=== PATIENT | female | born 1980 | race Two or more races ===

== ENCOUNTER 2021-05-19 12:43 | Emergency (ER) | payer SELFPAY ==
[~2021-05-19] VITALS: Ht 152.4 cm; Wt 68.2 kg
--- NOTE | 2021-05-19 16:04 | ED.ADGEN ---
Past Medical History Past Medical History: No Pertinent History Past Surgical History: Other Additional Past Surgical Histo: D&C 07/14/2019 Smoking Status: Never Smoker Alcohol Use: None Drug Use: None General Adult EDM: Chief Complaint: VAGINAL BLEEDING HPI: HPI: Patient is a 40 year old female who presents to the emergency department with complaints of frequent irregular menstrual cycles for the last 3 months. Patient states that she will have a menstrual cycle that lasts about 8 days then stop for 1 week and starts again. She reports that last night her bleeding was very heavy with clots so she thought she should come to the ER to be checked out. She denies any headache, dizziness, dysuria, hematuria, body aches, fever, fatigue, chest pain, palpitations, nausea, vomiting, or diarrhea. Patient denies any concerns of sexually transmitted infections. She complains of pelvic pain that she currently rates a 6 out of 10 on the pain scale. She denies any alleviating or exacerbating factors. Patient states she has only used 4 pads today. She denies any abnormal vaginal discharge prior to the onset of the bleeding. Review of Systems: Review of Systems: Complete ROS is negative unless otherwise noted in the HPI. Allergies: Allergies: Allergies Coded Allergies Type Severity Reaction Last Updated Verified No Known Drug Allergies 05/19/21 No Physical Exam: PE: See above Constitutional: Well developed, well nourished, no acute distress, non-toxic appearance. HENT: Normocephalic, atraumatic, bilateral external ears normal, nose normal. Eyes: PERRLA, EOMI, conjunctiva normal, no discharge. Neck: Normal range of motion, no stridor. 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 Back: No tenderness Extremities: No cyanosis, ROM intact, no edema. Neurologic: Alert and oriented X 3, no focal deficits noted. Psychologic: Affect normal, judgement normal, mood normal. Current Patient Data: Labs: Laboratory Tests Test 05/19/21 15:45 05/19/21 16:10 05/19/21 16:38 Urine Collection Type Unknown Urine Color Yellow Urine Clarity Clear Urine pH 5.5 (<5.0-8.0) Urine Specific [place] 1.020 (1.000-1.030) Urine Protein Negative mg/dL (NEG-TRACE) Urine Glucose (UA) Negative mg/dL (NEG) Urine Ketones (Stick) Negative mg/dL (NEG) Urine Blood Large (NEG) Urine Nitrite Negative (NEG) Urine Bilirubin Negative (NEG) Urine Urobilinogen Dipstick 0.2 mg/dL (0.2 mg/dL) Urine Leukocyte Esterase Negative (NEG) Urine RBC >40 /HPF (0-2) Urine WBC 1-4 /HPF (0-4) Urine Squamous Epithelial Cells Few /LPF Urine Bacteria 0 /HPF (0-FEW) POC Urine HCG, Qualitative Hcg negative (Negative) White Blood Count 9.2 x10^3/uL (4.0-11.0) Red Blood Count 5.00 x10^6/uL (3.50-5.40) Hemoglobin 14.0 g/dL (12.0-15.5) Hematocrit 40.8 % (36.0-47.0) Mean Corpuscular Volume 82 fL (79-100) Mean Corpuscular Hemoglobin 28 pg (25-35) Mean Corpuscular Hemoglobin Concent 34 g/dL (31-37) Red Cell Distribution Width 13.6 % (11.5-14.5) Platelet Count 351 x10^3/uL (140-400) Neutrophils (%) (Auto) 62 % (31-73) Lymphocytes (%) (Auto) 32 % (24-48) Monocytes (%) (Auto) 5 % (0-9) Eosinophils (%) (Auto) 1 % (0-3) Basophils (%) (Auto) 1 % (0-3) Neutrophils # (Auto) 5.7 x10^3/uL (1.8-7.7) Lymphocytes # (Auto) 2.9 x10^3/uL (1.0-4.8) Monocytes # (Auto) 0.5 x10^3/uL (0.0-1.1) Eosinophils # (Auto) 0.1 x10^3/uL (0.0-0.7) Basophils # (Auto) 0.0 x10^3/uL (0.0-0.2) Laboratory Tests 05/19/21 16:38 Vital Signs: Vital Signs Date Time Temp Pulse Resp B/P (MAP) Pulse Ox O2 Delivery O2 Flow Rate FiO2 05/19/21 15:25 98.6 74 16 126/59 100 Room Air 98.6 EKG: EKG: [] Heart Score: C/O Chest Pain: No Radiology/Procedures: Radiology/Procedures: []PROCEDURE: TRANSVAGINAL EXAM: ULTRASOUND PELVIS INDICATION: Right adnexal tenderness to palpation. Abnormal bleeding. COMPARISON: None. TECHNIQUE: Endovaginal sonography of the pelvis with grayscale and color Doppler technique. FINDINGS: The uterus measures 8.6 x 5.2 x 3.8 cm. Endometrial thickness of 0.4 cm. Unremarkable uterine echotexture. No discrete endometrial mass or fluid along the endometrial canal. The left ovary measures 2.1 x 1.2 x 1.2 cm and the right ovary 2.3 x 1.6 x 1.1 cm. Doppler flow is maintained. No complex cyst or mass. A few small follicles. No free pelvic fluid. IMPRESSION: The study is negative for ovarian torsion with well visualized color Doppler flow to both ovaries. Unremarkable uterus and endometrium. Electronically signed by: RADHA RIVERA MD (05/19/2021 4:44 PM) [facility] Course & Med Decision Making: Course & Med Decision Making Pertinent Labs and Imaging studies reviewed. (See chart for details) 40-year-old female presents emergency department for complaints of frequent irregular menstrual cycles. CBC is unremarkable, UA reveals blood not concerning for infection, pelvic ultrasound was also unremarkable. I advised patient that she is likely suffering from dysmenorrhea. Prescription written for ibuprofen 800 every 6 hours as needed and encouraged patient to follow-up with Dr. Glass for further evaluation and treatment Patient verbalized an understanding of home care, medications, follow-up, and return to ED instructions and was in agreement with the plan of care. [] Dragon Disclaimer: Dragon Disclaimer: This electronic medical record was generated, in whole or in part, using a voice recognition dictation system. Departure Departure Impression: Primary Impression: Dysmenorrhea Disposition: HOME / SELF CARE / HOMELESS Condition: STABLE Referrals: NO PCP (PCP) GLASS,ERNESTINA B MD Patient Instructions: Dysmenorrhea, [id number] Additional Instructions: Fill the prescription and use as directed. Follow up with Dr. Glass for further evaluation of your abnormal menstrual cycles. Return to the ER if fever develops or symptoms worsen. Scripts Ibuprofen (IBUPROFEN) 800 Mg Tablet 800 MG PO PRN Q6HRS PRN for PAIN for 5 Days, #20 TAB 0 Refills Prov: NELLY RIOS APRN 05/19/21 NELLY RIOS APRN May 19, 2021 16:04
[2021-05-19 16:16] LABS: BILIRUBIN,URINE NEGATIVE (NEG); CLARITY,URINE CLEAR; COLOR,URINE YELLOW; NITRITE,URINE NEGATIVE (NEG); PH,URINE 5.5 (<5.0-8.0); PROTEIN,URINE NEGATIVE (NEG-TRACE); UROBILINOGEN,URINE 0.2 mg/dL (0.2 mg/dL)
[2021-05-19 16:31] LABS: BACTERIA,URINE 0 /HPF (0-FEW); RBC,URINE >40 /HPF (0-2)
[2021-05-19 16:44] LABS: BASO % 1 % (0-3); EOS # 0.1 x10^3/uL (0.0-0.7); EOS % 1 % (0-3); HEMATOCRIT 40.8 % (36.0-47.0); LYMPH # 2.9 x10^3/uL (1.0-4.8); LYMPH % 32 % (24-48); MEAN CORPUSCULAR HEMOGLOBIN 28 pg (25-35); MEAN CORPUSCULAR HGB CONC 34 g/dL (31-37); MEAN CORPUSCULAR VOLUME 82 fL (79-100); MONO # 0.5 x10^3/uL (0.0-1.1); MONO % 5 % (0-9); NEUT # 5.7 x10^3/uL (1.8-7.7); NEUT % 62 % (31-73); PLATELET COUNT 351 x10^3/uL (140-400); RED CELL DISTRIBUTION WIDTH 13.6 % (11.5-14.5); WHITE BLOOD COUNT 9.2 x10^3/uL (4.0-11.0)
--- NOTE | 2021-05-19 16:46 | RAD ---
EXAM: ULTRASOUND PELVIS INDICATION: Right adnexal tenderness to palpation. Abnormal bleeding. COMPARISON: None. TECHNIQUE: Endovaginal sonography of the pelvis with grayscale and color Doppler technique. FINDINGS: The uterus measures 8.6 x 5.2 x 3.8 cm. Endometrial thickness of 0.4 cm. Unremarkable uterine echotex ture. No discrete endometrial mass or fluid along the endometrial canal. The left ovary measures 2.1 x 1.2 x 1.2 cm and the right ovary 2.3 x 1.6 x 1.1 cm. Doppler flow is ma intained. No complex cyst or mass. A few small follicles. No free pelvic fluid. IMPRESSION: The study is negative for ovarian torsion with well visualized color Doppler flow to both ovaries. Un remarkable uterus and endometrium. Electronically signed by: RADHA RIVERA MD (05/19/2021 4:44 PM) [facility]
[2021-05-19] MEDS ORDERED: IBUP-1060 PO (16:54)
[2021-05-19 17:15] VITALS: BP 116/56
== END 2021-05-19 17:15 | disposition home or self-care (01) ==
LOC: ER 12:43
DX: N94.6 Dysmenorrhea, unspecified (principal); R10.2 Pelvic and perineal pain
CPT/HCPCS: 36415; 76830; 81001; 81025; 85025; 99284-25